=== PATIENT | male | born 1935 | race Hispanic/Latino ===

== ENCOUNTER 2019-12-13 15:23 | Emergency (ER) | payer MEDICARE ==
[2019-12-13 15:29] VITALS: BP 149/60
--- NOTE | 2019-12-13 16:11 | Emergency Department Report ---
Head Injury w/o Laceration - HPI Chief Complaint: Fall Stated Complaint: FALL Time Seen by Provider: 12/13/19 15:57 Mechanism: Fall Location: Occipital Severity: mild Head Inj w/o Lac: Yes Break in Skin, Yes Bleeding, No Loss of Consciousness, No Nausea, No Blurred Vision, No Altered Mental Status, No Headache, No Focal Deficit, No Swelling, No Bruising Other History: This is a very pleasant 84-year-old male who presents the emergency department with chief complaint of a fall and subsequent head injury with laceration to the top of his head. Patient reports he was walking in his bathroom which is currently being renovated and tripped over a tarp falling forward hitting the corner of a wall. He reports a laceration to the top of his head. He also reports a mild headache. Denies any other injuries. Denies loss of consciousness. Nausea vomiting, seizure or any other associated symptoms. This was witnessed by a worker. The also reports that this was not a syncopal episode, there was no symptoms prior to the fall per the . No symptoms of dizziness, weakness, chest pain, severe headache, or any other symptoms prior to the fall. The patient reports his pain now is mild and a 3 out of 10 in severity. Unsure of last tetanus shot. ED General PMH - Family History Significant Family History: no pertinent family hx - Social History Smoking Status: Never Smoker ED Neuro ROS - Review of Systems Constitutional: denies: no symptoms reported, see HPI, chills, diaphoresis, fever, malaise, weakness, other Eyes (ROS): denies: no symptoms reported, see HPI, blindness, blurred vision, vision change, drainage, decreased acuity, foreign body sensation, inflammation, pain, photophobia, previous injury, shadows, tunnel vision, contact lenses, glasses, other Ears, Nose, Mouth, Throat: denies: no symptoms reported, see HPI, ear pain, ear discharge, nose pain, nose discharge, epistaxis, mouth pain, mouth swelling, loose teeth, throat pain, throat swelling Respiratory: denies: no symptoms reported, see HPI, cough, orthopnea, short of breath, stridor, wheezing, other Cardiology: denies: no symptoms reported, see HPI, chest pain, edema, palpitations, syncope, other Gastrointestinal/Abdominal: denies: no symptoms reported, see HPI, abdominal pain, constipation, diarrhea, nausea, vomiting, other Musculoskeletal: denies: no symptoms reported, see HPI, back pain, gout, joint pain, joint swelling, muscle pain, muscle stiffness, neck pain, other Neurological: headache. denies: no symptoms reported, see HPI, anxiety, depressed, emotional problems, cognitive dysfunction, numbness, petit mal seizures, tingling, tonic-clonic seizures, unable to move lower ext, unable to move upper ext, weakness, other Endocrine: denies: no symptoms reported, see HPI, excessive sweating, flushing, intolerance to cold, intolerance to heat, increased hunger, increased thirst, increased urine, unexplained weight gain, unexplained weight loss, other Head Injury W/O Lac Exam - Exam General: Vital signs noted. No distress. Alert and acting appropriately. Head: Yes Pupils are PERRL, No Hemotympanum, No Hematoma/Ecchymosis, No Epistaxis, No Stepoff/Deformity, No Laceration, No Abrasion Chest, Abd, & Ext: Yes Clear Lung Sounds, Yes Regular Heart Rhythm, No Neck Pain, No Chest Injury/Pain, No Heart Murmur, No Abdominal Tenderness, No Back Tenderness, No Extremity Injury Neuroligical (Head Inj W/O Lac: Yes Normal Speech, Yes Normal Gait, No Lethargy, No Disorientation, No Focal Numbness, No Focal Weakness Exam: There is a 4 cm laceration to the crown of the head with no active bleeding. There is negative victor sign, negative raccoon eyes, no hemotympanum, no otorrhea or rhinorrhea. Patient is alert and oriented and no focal neurologic deficits. - Laceration /Wound Repair Head Wound Location: head Wound Length (cm): 4 Wound's Depth, Shape: superficial Wound Explored: clean Irrigated w/ Saline (ccs): 250 Betadine Prep?: Yes Number of Sutures: 4 (Denise) Layer Closure?: No Sterile Dressing Applied?: Yes Progress: Patient tolerated very well. Less than 5 mL of blood loss. ED Disposition Clinical Impression: Scalp laceration Qualifiers: Encounter type: initial encounter Qualified Code(s): S01.01XA - Laceration without foreign body of scalp, initial encounter Closed head injury Qualifiers: Encounter type: initial encounter Qualified Code(s): S09.90XA - Unspecified injury of head, initial encounter Disposition: TO HOME OR SELFCARE Is pt being admited?: No Condition: Stable Instructions: Minor Head Injury (ED), Staple Care (ED) Time of Disposition: 17:22 Medical Decision Making - Radiology Data Radiology results: report reviewed, image reviewed Cat Scan Report Signed Patient: EARL SOLORZANO MR#: [id number] : 1935 Acct:[id number] Age/Sex: 84 / M ADM Date: 12/13/19 Loc: ED Attending Dr: Ordering Physician: BILLIE JOHN Date of Service: 12/13/19 Procedure(s): CT head/brain wo con Accession Number(s): [id number] cc: BILLIE JOHN CT head/brain wo con INDICATION: fall, head injury. TECHNIQUE: Routine CT head without contrast. All CT scans at this location are performed using CT dose reduction for ALARA by means of automated exposure control. COMPARISON: None. FINDINGS: BRAIN / INTRACRANIAL CONTENTS: No acute hemorrhage, brain edema, mass effect, or hydrocephalus. Normal gonzalez-white differentiation. No chronic infarct. Age-commensurate ventricular and cisternal/sulcal prominence. CALVARIUM/SKULL BASE/CRANIOCERVICAL JUNCTION: No evidence of fracture. ORBITS: No significant abnormality of visualized orbits. SINUSES / MASTOIDS: No significant abnormality of visualized sinuses and mastoid air cells. ADDITIONAL FINDINGS: None. IMPRESSION: 1. No acute post-traumatic intracranial abnormality. Signer Name: Vin Cummins MD Signed: 12/13/2019 5:06 PM Workstation Name: [id number] - MDM Patient nontoxic in no acute distress. Vitals are stable. Patient and are adamant that this was a mechanical fall and there is no syncope or any symptoms prior to the fall. CT of the head was ordered and negative. Laceration was repaired without complication. Recommended outpatient follow-up with primary care doctor tomorrow and return to the ER in 5 to 7 days for staple removal. Patient was instructed to return to the ER with any change worsening symptoms such as headache, dizziness, weakness, nausea vomiting, seizure or any other changing worsening symptoms. Patient and family were agreeable to this plan and all their questions were answered.
[2019-12-13] MEDS ORDERED: DIPHtheria,PERTUSSIS(ACELL),TETANUS VACCINE/PF 0.5 ML VIAL IM ONE (17:00)
--- NOTE | 2019-12-13 17:11 | Cat Scan Report ---
CT head/brain wo con INDICATION: fall, head injury. TECHNIQUE: Routine CT head without contrast. All CT scans at this location are performed using CT dose reduction for ALARA by means of automated exposure control. COMPARISON: None. FINDINGS: BRAIN / INTRACRANIAL CONTENTS: No acute hemorrhage, brain edema, mass effect, or hydrocephalus. [place] l gonzalez-white differentiation. No chronic infarct. Age-commensurate ventricular and cisternal/sulcal p rominence. CALVARIUM/SKULL BASE/CRANIOCERVICAL JUNCTION: No evidence of fracture. ORBITS: No significant abnormality of visualized orbits. SINUSES / MASTOIDS: No significant abnormality of visualized sinuses and mastoid air cells. ADDITIONAL FINDINGS: None. IMPRESSION: 1. No acute post-traumatic intracranial abnormality. Signer Name: Vin Cummins MD Signed: 12/13/2019 5:06 PM Workstation Name: [id number]
== END 2019-12-13 17:31 | disposition home or self-care (01) ==
LOC: ED 15:23
DX: S01.01XA Laceration without foreign body of scalp, initial encounter (principal); S09.90XA Unspecified injury of head, initial encounter; Z79.899 Other long term (current) drug therapy; W18.30XA Fall on same level, unspecified, initial encounter; Y93.89 Activity, other specified; Y92.091 Bathroom in other non-institutional residence as the place of occurrence of the external cause; Y99.9 Unspecified external cause status
CPT/HCPCS: 70450; 90471; 90715; 99283